=== PATIENT | male | born 1960 | race Caucasian/White ===

== ENCOUNTER → 2020-12-07 02:46 | Outpatient (CLI) | payer BC, SELFPAY ==
[2020-12-07 18:29] LABS: SARS-CoV-2 RNA PCR Negative
== END ==
PROVIDERS: PCP Family Medicine; Visit Provider Internal Medicine Gastroenterology
DX: Z01.812 Encounter for preprocedural laboratory examination (principal); Z20.822 Contact with and (suspected) exposure to COVID-19
CPT/HCPCS: C9803; U0003; U0005

== ENCOUNTER 2020-12-10 02:52 | Day surgery (SDC) | payer BC, SELFPAY ==
[2020-11-29 14:18] VITALS: BMI 38.1
[2020-12-10] MEDS: LACTATED RINGERS 1,000 ML 150 ML IV CONT (07:09)
[2020-12-10 07:11] VITALS: BP 156/84; PULSE 71; RESP 17; TEMP 36.1; O2SAT 98
--- NOTE | 2020-12-10 07:17 | WPDANESEPPF ---
Anes - Initial Pre Proc Eval Procedure: Operation Date: 12/10/20 08:00 Proposed Procedures p Screening Colonoscopy - Chino Taylor MD Date/Time: 12/10/20 07:17 Surgeon: Chino Taylor MD Pre Op Diagnosis: neoplasm screening Patient Data Age: 60 Gender: M Height: 1.78 m Weight: 117 kg Last Vital Signs Temp 36.1 C L 12/10/20 07:11 Pulse 71 12/10/20 07:11 Resp 17 12/10/20 07:11 BP 156/84 H 12/10/20 07:11 Pulse Ox 98 12/10/20 07:11 Allergies Allergy/AdvReac Type Severity Reaction Status Date / Time No Known Allergies Allergy Verified 11/29/20 14:16 Home Medications Medication Instructions Recorded Confirmed Type atorvastatin 40 mg tablet 40 mg PO DAILY #90 tablet 09/21/20 12/10/20 Rx lisinopril 20 1 tablet PO BID #180 tablet 09/21/20 12/10/20 Rx mg-hydrochlorothiazide 12.5 mg tablet metoprolol succinate 200 mg 200 mg PO DAILY #90 tablet 09/21/20 12/10/20 Rx tablet,extended release 24 hr Patient hx anesthesia problems: none Family hx anesthesia problems: none Results Review: All pre-operative results and documents have been reviewed as part of the pre-operative evaluation. [facility] Past Medical History Medical History Arthritis Hyperlipemia Hypertension Surgical History Surgical History H/O colonoscopy (~2009) Family History Family History Father Malignant neoplasm of prostate Cancer Mother Heart disease Hypertension Social History Social History Smoking status: Never smoker Alcohol intake: current Drinks per week: 2 Alcohol use details: drinks occasionally Substance use: never Living arrangements: with family Gender identity (if verbalized by the patient): Male Sexual Orientation (if Verbalized by the Patient): Straight or Heterosexual Anes - Eval Final PreProcedure Day of Procedure 12/10/20 07:17 Patient weight: obese Heart: regular rate and rhythm Lungs: clear to auscultation Airway: Mallampati scale class III Neurological: alert and oriented Last oral intake: >/= 8 hours ASA classification: III Emergent: no Anesthetic plan: proceed Anesthesia type and monitoring: general GIVS and standard monitoring Results Review: All pre-operative results and documents have been reviewed as part of the pre-operative evaluation. Informed Consent: The patient's anesthetic plan and its attendant risks and benefits were discussed with the patient/family/POA. Questions were solicited and answers provided to the satisfaction of the patient/family/POA.
--- NOTE | 2020-12-10 07:46 | PM.HPGS ---
History of Present Illness History of Present Illness Consent: Risks, benefits, and alternatives have been discussed and questions answered. Patient agrees to proceed with procedure. Chief complaint: neoplasm screening Narrative: Ricardo Ruth Jr. is a 60 year old male here for screening colonoscopy, last one 11 years ago. Review of Systems Constitutional: Constitutional: Denies headache(s) and Denies weakness Eyes: Eyes: Denies blurry vision ENT: Reports Normal hearing present, Denies headache(s) and Denies neck pain Cardiovascular: Cardiovascular: Denies chest pain and Denies dyspnea Respiratory: Respiratory: Denies dyspnea Gastrointestinal: Gastrointestinal: Reports no additional gastrointestinal complaints Genitourinary: Genitourinary: Denies dysuria Musculoskeletal: Musculoskeletal: Denies neck pain Integumentary/Breasts: Skin/Breast: Denies dry skin Neurologic: Reports Normal hearing present, Denies headache(s) and Denies weakness Psychiatric: Psychiatric: Denies anxiety Endocrine: Endocrine: Denies change in body appearance Hematologic/Lymphatic: Hematologic/Lymphatic: Denies easy bleeding Allergic/Immunologic: Allergic/Immunologic: Denies urticaria PMFSH Past Medical History Medical History Arthritis Hyperlipemia Hypertension Surgical History Surgical History H/O colonoscopy (~2009) Family History Family History Father Malignant neoplasm of prostate Cancer Mother Heart disease Hypertension Social History Social History Smoking status: Never smoker Alcohol intake: current Drinks per week: 2 Alcohol use details: drinks occasionally Substance use: never Living arrangements: with family Gender identity (if verbalized by the patient): Male Sexual Orientation (if Verbalized by the Patient): Straight or Heterosexual Meds Home Medications and Allergies Home Medications Medication Instructions Recorded Confirmed Type atorvastatin 40 mg tablet 40 mg PO DAILY #90 tablet 09/21/20 12/10/20 Rx lisinopril 20 1 tablet PO BID #180 tablet 09/21/20 12/10/20 Rx mg-hydrochlorothiazide 12.5 mg tablet metoprolol succinate 200 mg 200 mg PO DAILY #90 tablet 09/21/20 12/10/20 Rx tablet,extended release 24 hr Allergies Allergy/AdvReac Type Severity Reaction Status Date / Time No Known Allergies Allergy Verified 11/29/20 14:16 Vital Signs Vital Signs - 24 hr 12/10/20 07:11 Temperature 97 F L Pulse Rate 71 Respiratory Rate 17 Blood Pressure 156/84 H Pulse Oximetry 98 Exam Const: General: comfortable and no acute distress HENMT: General nose exam: Normal nares present Eyes: General: appearance normal, both eyes and all related structures Neck: Neck: no JVD Resp: Auscultation: clear to auscultation bilaterally Cardio: Rate: regular rate Rhythm: regular rhythm GI: Inspection: non-distended GI Palp: Yes Soft to palpation Skin: General skin exam: normal color Neuro: General: gait normal Speech: normal speech Extrem: General: normal to inspection Psych: Mental Status: mental status grossly normal Assessment and Plan Assessment and plan (1) Screening for colon cancer: Code(s): Z12.11 - Encounter for screening for malignant neoplasm of colon Status: Acute Assessment and Plan: colonoscopy
[2020-12-10 08:16] VITALS: BP 113/72; PULSE 71; RESP 15; O2SAT 93
[2020-12-10 08:26] VITALS: BP 129/83; PULSE 72; RESP 22; O2SAT 96
[2020-12-10 08:36] VITALS: BP 126/82; PULSE 70; RESP 20; O2SAT 96
== END 2020-12-10 08:44 | disposition home or self-care (01) ==
PROVIDERS: PCP Family Medicine; Visit Provider Internal Medicine Gastroenterology
PROC: 0DJD8ZZ Inspection of Lower Intestinal Tract, Via Natural or Artificial Opening Endoscopic (ICD-10-PCS; CPT 45378; principal; 2020-12-10 08:00)
DX: Z12.11 Encounter for screening for malignant neoplasm of colon (principal); K57.30 Diverticulosis of large intestine without perforation or abscess without bleeding; K64.8 Other hemorrhoids; K62.89 Other specified diseases of anus and rectum; K63.5 Polyp of colon; K62.1 Rectal polyp; M19.90 Unspecified osteoarthritis, unspecified site; I10 Essential (primary) hypertension; E78.5 Hyperlipidemia, unspecified; E66.9 Obesity, unspecified; Z68.37 Body mass index [BMI] 37.0-37.9, adult
CPT/HCPCS: 45380; 45385; 88305; J2704; J7120

== ENCOUNTER 2021-01-19 16:49 | Outpatient (CLI) | payer BC, SELFPAY ==
[2021-01-19 17:25] LABS: Hematocrit 42.3 % (40.0-54.0); Hemoglobin 14.7 g/dL (14.0-18.0); Mean Corpuscular HGB Conc 34.8 g/dL (32.0-36.0); Mean Corpuscular Hemoglobin 29.8 pg (27.0-31.0); Mean Corpuscular Volume 85.6 fL (78.0-102.0); Mean Platelet Volume 9.3 fl (8.7-11.0); Platelet Count Result 241 K/mm3 (150-420); Red Blood Count 4.94 M/mm3 (4.70-6.10); Red Cell Distribution Width 12.5 % (11.6-14.4); White Blood Count 10.1 K/mm3 (4.8-10.8)
[2021-01-19 17:58] LABS: Alanine Aminotransferase 23 U/L (16-63); Albumin Level 3.9 g/dL (3.4-5.0); Alkaline Phosphatase 150 U/L (46-116); Anion Gap 9 mmol/L (8-16); Aspartate Amino Transferase 23 U/L (15-37); Bilirubin,Total 0.7 mg/dL (0.00-1.00); Blood Urea Nitrogen 16 mg/dL (7-18); Calcium 9.1 mg/dL (8.5-10.1); Carbon Dioxide 30 mmol/L (21-32); Chloride 101 mmol/L (98-108); Cholesterol 142 mg/dL (0-200); Estimated Glomerular Filt Rate > 60; Glucose 101 mg/dL (70-99); HDL Direct 36 mg/dL (40-60); LDL Cholesterol Calculated 76 mg/dL (<130); Osmolality Calculated 291 mOsm/kg (285-295); Potassium 3.9 mmol/L (3.5-5.1); Sodium 140 mmol/L (136-145); Total Protein 7.2 g/dL (6.4-8.2); Triglycerides 151 mg/dL (0-150)
[2021-01-19 18:00] LABS: Thyroid Stimulating Hormone Reflex 2.05 u/IU/mL (0.36-3.74)
== END 2021-01-19 16:50 | disposition home or self-care (01) ==
LOC: CHSLAB 16:52
PROVIDERS: PCP Family Medicine; Visit Provider Family Medicine
DX: E11.9 Type 2 diabetes mellitus without complications (principal); I10 Essential (primary) hypertension
CPT/HCPCS: 36415; 80053; 80061; 84443; 85027

== ENCOUNTER 2021-01-25 10:18 | Outpatient (CLI) | payer BC, SELFPAY ==
--- NOTE | 2021-01-25 10:23 | ECHO_ITS ---
Patient Info Name: Ricardo Ruth Age: 60 years : 1960 Gender: Male Ht: 71 in Wt: 265 lbs BSA: 2.50 m2 HR: 61 bpm BP: 130 / 70 mmHg Exam Date: 01/25/2021 11:11 AM Exam Location: [facility] Patient Status: Outpatient Admit Date: 01/25/2021 Staff Ordering Physician: Quinten Ramirez DO Export Documents Clerk: Christiane Blount Attending Provider: Quinten Ramirez DO Referring Physician: Ashley PINEDA; Exam Type: CA echo doppler color flow Study Info Indications I10 - Essential (primary) hypertension Complete two-dimensional, color flow and Doppler transthoracic echocardiogram is performed. Strain analysis performed. Summary 1. Complete two-dimensional, color flow and Doppler transthoracic echocardiogram is performed. 2. Left ventricular chamber dimension is normal. 3. Left ventricular systolic function is normal, estimated at 60-65%. 4. There is mildly increased left ventricular wall thickness. 5. The left ventricular diastolic function is grade I diastolic dysfunction. 6. Global longitudinal strain is normal at -18.4%. 7. Mild pulmonary hypertension, estimated pulmonary arterial systolic pressure is 40 mmHg. Left Ventricle Global longitudinal strain is normal at -18.4%. Tissue doppler was not performed. Left ventricular chamber dimension is normal. Left ventricular systolic function is normal, estimated at 60-65%. There is mildly increased left ventricular wall thickness. The left ventricular diastolic function is grade I diastolic dysfunction. Right Ventricle Right ventricular systolic function is normal and with normal TAPSE 2.0 cm. Right ventricular chamber dimension is normal. Left Atria Left atrial chamber dimension is normal. Right Atria Right atrial chamber dimension is normal. Aortic Valve The aortic valve is trileaflet. There is no aortic valve stenosis. There is no aortic valve regurgitation. Pulmonic Valve There is no pulmonic regurgitation. Mitral Valve There is no mitral valve stenosis. There is no mitral valve regurgitation. Tricuspid Valve There is no tricuspid valve regurgitation. Mild pulmonary hypertension, estimated pulmonary arterial systolic pressure is 40 mmHg. Pericardium/Pleural There is no pericardial effusion. Inferior Vena Cava Normal inferior vena cava with >50% collapse upon inspiration consistent with normal right atrial pressure, 5 mmHg. Aorta The aortic root size at the sinus of Valsalva is normal. Left Ventricular Outflow Tract Name Value Normal LVOT 2D LVOT Diameter 2.1 cm LVOT Doppler LVOT Peak Velocity 95 cm/s LVOT Peak Gradient 4 mmHg LVOT Mean Gradient 2 mmHg LVOT VTI 23 cm LVOT VTI/AV VTI Ratio 0.6 LVOT Stroke Volume 78 ml Mitral Valve Name Value Normal MV Doppler -----
== END 2021-01-25 10:19 | disposition home or self-care (01) ==
LOC: CHSIMG 10:19
PROVIDERS: PCP Family Medicine; Visit Provider Family Medicine
DX: I10 Essential (primary) hypertension (principal)
CPT/HCPCS: 93306

== ENCOUNTER 2021-12-13 13:02 | Outpatient (CLI) | payer BC, SELFPAY ==
[2021-12-13 13:20] LABS: Add Urine Microscopic? YES; Appearance Urine Clear (Clear); Bilirubin Urine Negative (Negative); Blood Urine 2+ (Negative); Color Urine Yellow (Yellow); Glucose Urine UA Negative (Negative); Ketones Urine Negative (Negative); Leukocyte Esterase Ur Negative (Negative); Nitrate Urine Negative (Negative); Protein Urine Negative (Negative); Specific Grav Ur 1.025 (1.010-1.020); Urobilinogen Urine 0.2 mg/dL (0.2-1.0)
[2021-12-13 13:25] LABS: WBC Urine None seen /hpf (0-3)
[2021-12-13 13:26] LABS: Bacteria Urine Trace /hpf; Mucus Urine Few /lpf; Squamous Epithelial Cell Urine Rare /hpf (Few)
== END 2021-12-13 13:03 | disposition home or self-care (01) ==
LOC: CHSLAB 13:05
PROVIDERS: PCP Family Medicine; Visit Provider Family Medicine
DX: R35.1 Nocturia (principal)
CPT/HCPCS: 36415; 81001; 84153; G0103

== ENCOUNTER 2022-01-03 08:24 | Outpatient (CLI) | payer BC, SELFPAY ==
--- NOTE | ~2022-01-03 | CT_ITS ---
EXAMINATION: CT abdomen pelvis wo/w con DATE: 01/03/2022 09:05 INDICATION: Microscopic hematuria TECHNIQUE: Computed tomography (CT) of the abdomen and pelvis was performed without and subsequently with 130 CC Omnipaque 350 intravenous contrast. Automated exposure control and iterative reconstructi on technique were employed. Exam dose: 3102.47 mGy-cm total exam DLP. COMPARISON: None. FINDINGS: The lung bases are clear of infiltrate or consolidation. Normal heart size. There is some c alcification of the aortic valve. No pericardial or pleural effusion. There are at least several small mobile stones at the dependent aspect of the gallbladder. No gallbla dder wall thickening or pericholecystic fluid or fat stranding. No bile duct or pancreatic duct dilat ation. No hepatic, pancreatic or splenic space-occupying mass lesion. There is some splenic calcified granul omas. Normal morphology of the adrenal glands. Approximately 11 mm mildly enhancing mass in the posteromedial mid right kidney. Small hypernephroma is not excluded. Approximately 1 cm partially exophytic posterior lateral lower pole left renal enhancing lesion measu ring approximately 39 Hounsfield units precontrast and 83 Hounsfield units postcontrast. A small hype rnephroma must be considered. Occasional scattered very small hypoattenuating right renal lesions are too small to definitively mable racterize, possibly small cysts. Occasional left renal cysts measuring up to 10 mm. No urinary tract calculus or hydroureteronephrosis. The urinary bladder is unremarkable. Moderately prominent prostate enlargement. Normal caliber and very slight calcification of the abdominal aorta. No intraperitoneal or retroperit carreon or pelvic mass lesion or adenopathy or ascites. Fat-containing right inguinal hernia Mild degenerative spurring of the thoracic spine. Moderately severe degenerative disc disease at L5-S 1. Increased density and coarsened trabeculae of the left hemipelvis most consistent with Paget's diseas e. IMPRESSION: Suspicious right renal 11 mm and left renal 1 cm masses; MRI renal examination is recomm ended. Bilateral renal cysts Prominent prostate enlargement Paget's disease of the left hemipelvis Moderately severe degenerative disc disease at L5-S1 Reviewed, dictated and finalized at [facility]. Reviewed, dictated and finalized at [facility]. [employer] [facility] IMPRESSION: Suspicious right renal 11 mm and left renal 1 cm masses; MRI renal examination is recommended. Bilateral renal cysts Prominent prostate enlargement Paget's disease of the left hemipelvis Moderately severe degenerative disc disease at L5-S1
[2022-01-03 08:44] LABS: Estimated Glomerular Filt Rate > 60
== END 2022-01-03 08:25 | disposition home or self-care (01) ==
PROVIDERS: PCP Family Medicine; Visit Provider Nurse Practitioner
DX: R31.29 Other microscopic hematuria (principal); N28.1 Cyst of kidney, acquired; N40.0 Benign prostatic hyperplasia without lower urinary tract symptoms; M51.37 Other intervertebral disc degeneration, lumbosacral region
CPT/HCPCS: 74178; Q9967

== ENCOUNTER 2023-11-09 09:15 | Outpatient (CLI) | payer MEDICARE, SELFPAY ==
[2023-11-09 09:32] LABS: Basophils Absolute Auto 0.04 K/mm3 (0.00-0.10); Basophils Percent Auto 0.5 % (0.0-1.0); Eosinophils Absolute Auto 0.07 K/mm3 (0.02-0.50); Eosinophils Percent Auto 0.9 % (1.0-6.0); Hematocrit 44.3 % (37.0-46.0); Hemoglobin 15.2 g/dL (12.4-15.3); Immature Granulocyte Absolute 0.04 K/mm3 (0.00-0.00); Immature Granulocyte Percent A 0.5 % (0.0-0.0); Lymphocytes Absolute Auto 1.18 K/mm3 (1.10-4.50); Lymphocytes Percent Auto 14.5 % (18.0-42.0); Mean Corpuscular HGB Conc 34.3 g/dL (32-36); Mean Corpuscular Hemoglobin 29.9 pg (27.0-31.0); Mean Platelet Volume 8.6 fl (8.7-11.0); Monocytes Absolute Auto 0.53 K/mm3 (0.10-0.90); Monocytes Percent Auto 6.5 % (2.0-11.0); Neutrophils Absolute Auto 6.28 K/mm3 (1.70-7.20); Neutrophils Percent Auto 77.1 % (50.0-70.0); Platelet Count Result 203 K/mm3 (150-420); Red Blood Count 5.09 M/mm3 (4.70-6.10); Red Cell Distribution Width 12.8 % (11.6-14.4); White Blood Count 8.1 K/mm3 (4.8-10.8)
[2023-11-09 09:54] LABS: Add Urine Microscopic? YES; Appearance Urine Clear (Clear); Bilirubin Urine Negative (Negative); Blood Urine 1+ (Negative); Color Urine Light Yellow (Yellow); Glucose Urine UA Negative (Negative); Ketones Urine Negative (Negative); Leukocyte Esterase Ur Negative (Negative); Nitrate Urine Negative (Negative); Protein Urine Negative (Negative); Specific Grav Ur 1.025 (1.010-1.020); Urobilinogen Urine 0.2 mg/dL (0.2-1.0); pH Urine 5.5 (5.0-8.0)
[2023-11-09 10:01] LABS: Bacteria Urine Trace /hpf; Squamous Epithelial Cell Urine Rare /hpf (Few); WBC Urine None seen /hpf (0-3)
[2023-11-09 10:13] LABS: Alanine Aminotransferase 27 U/L (16-63); Albumin Level 3.7 g/dL (3.4-5.0); Alkaline Phosphatase 170 U/L (46-116); Anion Gap 6 mmol/L (4-12); Aspartate Amino Transferase 28 U/L (15-37); Blood Urea Nitrogen 23 mg/dL (7-18); Calcium 9.3 mg/dL (8.5-10.1); Carbon Dioxide 29 mmol/L (21-32); Chloride 103 mmol/L (98-108); Cholesterol 124 mg/dL (0-200); Estimated Glomerular Filt Rate > 60; Glucose 111 mg/dL (70-99); HDL Direct 36 mg/dL (40-60); LDL Cholesterol Calculated 54 mg/dL (<130); Osmolality Calculated 290 mOsm/kg (285-295); Potassium 4.2 mmol/L (3.5-5.1); Sodium 138 mmol/L (136-145); Total Protein 7.1 g/dL (6.4-8.2); Triglycerides 171 mg/dL (0-150)
== END 2023-11-09 09:16 | disposition home or self-care (01) ==
PROVIDERS: PCP Family Medicine; Visit Provider Family Medicine
DX: R35.0 Frequency of micturition (principal); I10 Essential (primary) hypertension
CPT/HCPCS: 36415; 80053; 80061; 81001; 85025

== ENCOUNTER 2023-11-26 02:22 | Day surgery (SDC) | payer MEDICARE, SELFPAY ==
[2023-11-14 09:44] VITALS: BMI 37.6
[2023-11-26 09:03] VITALS: BP 148/78; PULSE 63; RESP 20; TEMP 36.4; O2SAT 99; BMI 37.9
[2023-11-26] MEDS: LACTATED RINGERS 1,000 ML 150 ML IV CONT (09:27)
--- NOTE | 2023-11-26 09:34 | WPDANESEPPF ---
Anes - Initial Pre Proc Eval Procedure: Operation Date: 11/26/23 10:30 Proposed Procedures p Colonoscopy - Eriberto Dutta MD Date/Time: 11/26/23 09:34 Surgeon: Eriberto Dutta MD Pre Op Diagnosis: hx of colon polyps Patient Data Age: 63 Gender: M Height: 1.78 m Weight: 120 kg Last Vital Signs Temp 36.4 C L 11/26/23 09:03 Pulse 63 11/26/23 09:03 Resp 20 11/26/23 09:03 BP 148/78 H 11/26/23 09:03 Pulse Ox 99 11/26/23 09:03 O2 Del Method Room Air 11/26/23 09:03 Allergies Allergy/AdvReac Type Severity Reaction Status Date / Time No Known Allergies Allergy Verified 11/14/23 09:42 Home Medications Medication Instructions Recorded Confirmed Type atorvastatin 40 mg tablet 40 mg PO DAILY #90 tabs 04/25/23 11/14/23 Rx lisinopril 20 1 tablet PO DAILY #90 tabs 04/25/23 11/14/23 Rx mg-hydrochlorothiazide 12.5 mg tablet metoprolol succinate 200 mg 200 mg PO DAILY #90 tabs 04/25/23 11/14/23 Rx tablet,extended release 24 hr Patient hx anesthesia problems: none Family hx anesthesia problems: none Results Review: All pre-operative results and documents have been reviewed as part of the pre-operative evaluation. [facility] Past Medical History Medical History Arthritis Hyperlipemia Hypertension Surgical History Surgical History H/O colonoscopy (~2009) H/O excision of dermoid cyst exc of 2cm scalp cyst on 07/27/22 History of incision and drainage I&D Scalp Abscess Mar & May 2022 Hx of skin graft Hand 1974 Family History Family History Father Malignant neoplasm of prostate Cancer Mother Heart disease Hypertension Social History Social History Smoking status: Never smoker Alcohol intake: current Drinks per week: 2 Alcohol use details: 2 per month Substance use: never Lack of Transportation: No Lack of Food: Never True Current Housing: I Have Housing Concerned About Future Housing: No Difficulty Paying Gas/Electric Bills: No Difficulty Paying for Meds: No Currently Unemployed: No Education: High School Diploma/GED Difficulty w/ Childcare or Family Care: No Living arrangements: with family Gender identity (if verbalized by the patient): Male Sexual Orientation (if Verbalized by the Patient): Straight or Heterosexual Spiritual care concerns: No Anes - Eval Final PreProcedure Day of Procedure 11/26/23 09:34 Patient weight: obese Heart: regular rate and rhythm Lungs: clear to auscultation Airway: Mallampati scale class II Neurological: alert and oriented Last oral intake: >/= 8 hours ASA classification: III Emergent: no Anesthetic plan: proceed Anesthesia type and monitoring: general GIVS and standard monitoring Results Review: All pre-operative results and documents have been reviewed as part of the pre-operative evaluation. Informed Consent: The patient's anesthetic plan and its attendant risks and benefits were discussed with the patient/family/POA. Questions were solicited and answers provided to the satisfaction of the patient/family/POA.
--- NOTE | 2023-11-26 10:17 | PM.IMHP ---
H&P: HPI History of Present Illness Date/Time: 11/26/23 10:17 Chief Complaint: surveillance colonoscopy Narrative: The patient has a history of colonic polyps, the last colonoscopy was 3 years ago, he had polyps. Review of Systems Review of Systems: All systems reviewed & are unremarkable except as noted in HPI and below PMFSH Past Medical History Medical History Arthritis Hyperlipemia Hypertension Surgical History Surgical History H/O colonoscopy (~2009) H/O excision of dermoid cyst exc of 2cm scalp cyst on 07/27/22 History of incision and drainage I&D Scalp Abscess Mar & May 2022 Hx of skin graft Hand 1974 Family History Family History Father Malignant neoplasm of prostate Cancer Mother Heart disease Hypertension Social History Social History Smoking status: Never smoker Alcohol intake: current Drinks per week: 2 Alcohol use details: 2 per month Substance use: never Lack of Transportation: No Lack of Food: Never True Current Housing: I Have Housing Concerned About Future Housing: No Difficulty Paying Gas/Electric Bills: No Difficulty Paying for Meds: No Currently Unemployed: No Education: High School Diploma/GED Difficulty w/ Childcare or Family Care: No Living arrangements: with family Gender identity (if verbalized by the patient): Male Sexual Orientation (if Verbalized by the Patient): Straight or Heterosexual Spiritual care concerns: No Meds Home Medications and Allergies Home Medications Medication Instructions Recorded Confirmed Type atorvastatin 40 mg tablet 40 mg PO DAILY #90 tabs 04/25/23 11/14/23 Rx lisinopril 20 1 tablet PO DAILY #90 tabs 04/25/23 11/14/23 Rx mg-hydrochlorothiazide 12.5 mg tablet metoprolol succinate 200 mg 200 mg PO DAILY #90 tabs 04/25/23 11/14/23 Rx tablet,extended release 24 hr Allergies Allergy/AdvReac Type Severity Reaction Status Date / Time No Known Allergies Allergy Verified 11/14/23 09:42 Vital Signs Vital Signs - 24 hr 11/26/23 09:03 Temperature 97.5 F L Pulse Rate 63 Respiratory Rate 20 Blood Pressure 148/78 H Pulse Oximetry 99 Oxygen Delivery Room Air Assessment and Plan Assessment and plan (1) History of colonic polyps: Code(s): Z86.0100 - Personal history of colon polyps, unspecified Status: Acute Assessment and Plan: The patient is deemed a good candidate for the procedure. Consent signed. Will proceed.
[2023-11-26 10:45] VITALS: BP 115/86; PULSE 66; RESP 20; O2SAT 97
[2023-11-26 10:55] VITALS: BP 116/74; PULSE 62; RESP 20; O2SAT 97
[2023-11-26 11:05] VITALS: BP 119/69; PULSE 67; RESP 20; O2SAT 97
== END 2023-11-26 11:18 | disposition home or self-care (01) ==
PROVIDERS: PCP Family Medicine; Visit Provider Internal Medicine Gastroenterology
PROC: 0DJD8ZZ Inspection of Lower Intestinal Tract, Via Natural or Artificial Opening Endoscopic (ICD-10-PCS; CPT 45378; principal; 2023-11-26 10:30)
DX: Z12.11 Encounter for screening for malignant neoplasm of colon (principal); K64.8 Other hemorrhoids; E78.5 Hyperlipidemia, unspecified; I10 Essential (primary) hypertension; E66.9 Obesity, unspecified; Z68.38 Body mass index [BMI] 38.0-38.9, adult; Z98.890 Other specified postprocedural states; Z86.0100 Personal history of colon polyps, unspecified; Z80.42 Family history of malignant neoplasm of prostate; Z82.49 Family history of ischemic heart disease and other diseases of the circulatory system
CPT/HCPCS: G0105; J2003; J2704; J7120